=== PATIENT | male | born 1935 ===

== ENCOUNTER 2018-05-07 17:42 | Outpatient (CLI) | payer MEDICARE | END 2018-05-07 17:43 | disposition home or self-care (01) | LOC: C.SLEEP 17:43 | DX: G47.33 Obstructive sleep apnea (adult) (pediatric) (principal) ==

== ENCOUNTER 2018-07-07 18:24 | Outpatient (CLI) | payer MEDICARE | END 2018-07-07 18:25 | disposition home or self-care (01) | LOC: C.SLEEP 18:25 | DX: G47.33 Obstructive sleep apnea (adult) (pediatric) (principal) ==